=== PATIENT | male | born 2005 | race Two or more races ===

== ENCOUNTER 2024-04-22 16:56 | Emergency (ER) | payer BC ==
[2024-04-22] MEDS ORDERED: DIPH,PERTUS(ACELL)TETVAC-LF 0.5 ML VIAL IM ONE (17:23)
[2024-04-22] MEDS ORDERED: SULFAMETHOX-TMP 800-160MG 1 EACH TAB ONE (17:31)
--- NOTE | 2024-06-03 10:48 | XR ---
EXAMINATION TYPE: XR knee limited LT DATE OF EXAM: 05/01/2024 COMPARISON: None HISTORY: Foreign body TECHNIQUE: One view left knee lateral FINDINGS: There is a radiopaque foreign body in the suprapatellar space. No osseous contact is eviden t. IMPRESSION: 1. No acute osseous abnormality. 2. Suprapatellar foreign-body
== END 2024-04-22 17:55 | disposition home or self-care (01) ==
LOC: EC 16:56
CPT/HCPCS: 90471; 90715; 99283